=== PATIENT | female | born 1960 | race Caucasian/White ===

== ENCOUNTER 2024-08-30 09:17 | Inpatient (IN) | payer BC ==
[~2024-08-30] VITALS: Ht 177.8 cm; Wt 123.2 kg
[2024-08-30 09:57] LABS: BASO % 0.4 % (0.0-2.0); EOS # 0.1 K/mm3 (0.0-0.7); EOS % 1.3 % (0.0-4.0); GRAN # 6.8 K/mm3 (1.4-6.5); GRAN % 82.6 % (42.2-75.2); HEMOGLOBIN 11.6 g/dl (12.5-16.0); LYMPH # 0.7 K/mm3 (1.2-3.4); LYMPH % 8.6 % (20.0-51.0); MEAN CELL VOLUME 87 fl (80.0-100.0); MEAN CORPUSCULAR HEMOGLOBIN 28 pg (27-31); MEAN CORPUSCULAR HGB CONC 32 g/dl (33.0-37.0); MEAN PLATELET VOLUME 9.5 fl (7.4-10.4); MONO # 0.6 K/mm3 (0.1-0.6); MONO % 6.7 % (1.7-9.3); PLATELET COUNT 171 K/mm3 (130-400); RED BLOOD COUNT 4.14 M/mm3 (4.10-5.30); REDCELL DISTRIBUTION WIDTH-CV 13.4 % (11.5-14.5)
[2024-08-30 09:59] LABS: HEMATOCRIT 36.2 % (37.0-47.0)
[2024-08-30] MEDS ORDERED: Ondansetron 4 MG/2 ML VIAL IV ONE (10:00)
[2024-08-30] MEDS ORDERED: Morphine 4 MG/ML VIAL IV ONE (10:00)
[2024-08-30] MEDS ORDERED: NS 1,000 ML IV ONE (10:00)
[2024-08-30] MEDS ORDERED: Iohexol 350 - 100 ML VIAL IV ONE (10:17)
[2024-08-30] MEDS ORDERED: NS 100 ML IV SCH (10:18)
[2024-08-30 10:19] LABS: ALANINE AMINOTRANSFERASE 85 U/L (0-55); ALBUMIN 3.3 g/dL (3.4-4.8); ALKALINE PHOSPHATASE 156 U/L (40-150); ANION GAP 8 mmol/L (7-16); AST,SGOT 58 U/L (5-34); BILIRUBIN,TOTAL 1.3 mg/dL (0.2-1.2); BLOOD UREA NITROGEN 10 mg/dL (10-20); CALCIUM 9.4 mg/dL (8.4-10.2); CHLORIDE 103 mEq/L (98-107); CREATININE, serum 0.93 mg/dL (0.57-1.11); GLUCOSE 295 mg/dL (70-99); POTASSIUM 4.1 mEq/L (3.5-4.5); SODIUM 136 mEq/L (136-145); TOTAL PROTEIN 7.1 g/dl (6.2-8.1)
[2024-08-30 10:30] LABS: TROPONIN-I < 0.010 ng/mL (0.00-0.033)
[2024-08-30] MEDS ORDERED: LIPITOR 40MG TA40 MG PO (12:54)
[2024-08-30] MEDS ORDERED: ELIQUIS 5MG PO (12:54)
[2024-08-30] MEDS ORDERED: HCTZ 25MG TAB25 MG PO (12:54)
[2024-08-30] MEDS ORDERED: TOPROL XL 50MG50 MG PO (12:55)
[2024-08-30] MEDS ORDERED: SINGULAIR 110 MG/TAB PO (12:55)
[2024-08-30] MEDS ORDERED: COZAAR100 MG PO (12:55)
[2024-08-30] MEDS ORDERED: Polyethylene Glycol 3350 17 GM PDS PO PRN (13:15)
[2024-08-30] MEDS ORDERED: Ondansetron 4 MG/2 ML VIAL IV PRN (13:15)
[2024-08-30] MEDS ORDERED: Acetaminophen 325 MG TAB PO PRN (13:15)
[2024-08-30] MEDS ORDERED: Docusate Sodium 100 MG CAP PO PRN (13:15)
[2024-08-30] MEDS ORDERED: PHARMASSURE ZIN50 MG PO (13:30)
[2024-08-30] MEDS ORDERED: VITAMIN D31000 IU PO (13:30)
[2024-08-30] MEDS ORDERED: VTAMINC250TA PO (13:30)
[2024-08-30 14:27] VITALS: BP_SYST 143
[2024-08-30 14:49] VITALS: BP 145/83; PULSE 84; TEMP 98.1
[2024-08-30] MEDS ORDERED: dexAMETHasone 10 MG/ML VIAL IV SCH (16:00)
--- NOTE | 2024-08-30 16:00 | NUR ---
Pt arrived to the floor from ED. She is alert and oriented, has complaints of headache, prn tylenol given. Pt on 2L of O2 at this time. Oriented her to her room and educated on plan of care, orders and room service.
[2024-08-30 16:40] VITALS: BP_SYST 145
--- NOTE | 2024-08-30 18:00 | NUR ---
Discussed medication orders with pt, states that tylenol did help. Pt was on room air upon entering, she stated that she took it off when she went to the bathroom, checked O2 and it was 93%. I did call RT as there was not any extension tubing up here. Leaving O2 off at this time. No needs, will continue to monitor
[2024-08-30 19:32] VITALS: BP 133/70; PULSE 75; TEMP 98.1
[2024-08-30] MEDS ORDERED: Albuterol/Ipratropium 3 MG-0.5 MG/3 ML Neb Soln IH SCH (20:00)
[2024-08-30 20:19] VITALS: BP_SYST 133
[2024-08-30] MEDS ORDERED: Apixaban 5 MG TABLET PO SCH (21:00)
[2024-08-30] MEDS ORDERED: Doxycycline Monohydrate 100 MG CAP PO SCH (21:00)
[2024-08-30] MEDS ORDERED: Atorvastatin 40 MG TAB PO SCH (21:00)
--- NOTE | 2024-08-30 21:00 | NUR ---
Patient sitting up in bed. States she has a headache but denies any pain. States she feels like her headache is due to the shortness of air, 2L NC of O2 placed. Denies any needs. Assessment complete. IV in right AC flushes easily without complications. Call light and persoanl items in reach. Bed in low position.
[2024-08-31] VITALS (12 sets, daily range): BP systolic 118–150; BP diastolic 72–90; PULSE 61–96; TEMP 97.4–98.2
[2024-08-31 06:51] LABS: BASO % 0.2 % (0.0-2.0); GRAN # 5.5 K/mm3 (1.4-6.5); GRAN % 87.2 % (42.2-75.2); HEMOGLOBIN 11.7 g/dl (12.5-16.0); LYMPH # 0.6 K/mm3 (1.2-3.4); LYMPH % 8.8 % (20.0-51.0); MEAN CELL VOLUME 86 fl (80.0-100.0); MEAN CORPUSCULAR HEMOGLOBIN 28 pg (27-31); MEAN CORPUSCULAR HGB CONC 33 g/dl (33.0-37.0); MEAN PLATELET VOLUME 11.5 fl (7.4-10.4); MONO # 0.2 K/mm3 (0.1-0.6); MONO % 3.6 % (1.7-9.3); RED BLOOD COUNT 4.14 M/mm3 (4.10-5.30); REDCELL DISTRIBUTION WIDTH-CV 13.3 % (11.5-14.5)
[2024-08-31 07:23] LABS: HEMATOCRIT 35.7 % (37.0-47.0); PLATELET COUNT 104 K/mm3 (130-400)
[2024-08-31 07:25] LABS: CALCIUM 9.4 mg/dL (8.4-10.2); CREATININE, serum 0.95 mg/dL (0.57-1.11); POTASSIUM 4.5 mEq/L (3.5-4.5)
--- NOTE | 2024-08-31 08:00 | NUR ---
Pt doing well this morning, she is on room air and states she feels fine. Pt is getting up independently in her room, no complaints at this time. Pt has ordered breakfast. Hospitalist aware of blood sugars.
[2024-08-31] MEDS ORDERED: Insulin Lispro (HumaLOG) SQ SCH (08:29)
[2024-08-31] MEDS ORDERED: Losartan 50 MG TAB PO SCH (09:00)
[2024-08-31] MEDS ORDERED: hydroCHLOROthiazide 25 MG TAB PO SCH (09:00)
--- NOTE | 2024-08-31 10:33 | NUR ---
Discussed new orders with pt. Pt has been up walking in the halls with no issues, not requiring any O2. Lung sounds continue to be diminished. She is aware the Dr Villalba with pulmonology will be rounding with her today. No needs, will continue to monitor
--- NOTE | 2024-08-31 10:47 | NUR ---
Dr Villalba in with pt discussing plan of care
--- NOTE | 2024-08-31 11:32 | NUR ---
Initial visit; Patient found Vice President Payment in the patterson. She is doing better physically though dealing with the breakup of a 45 year marriage to a Prn Occupational Therapist. Nichol is doing all the healthy "grief" care and counseling along with joining a new [employer] and trying different activities. She shed a few tears which Vice President Payment said are good and Vice President Payment is always available for her. She thanked Vice President Payment for keeping her in her prayers.
--- NOTE | 2024-08-31 13:01 | NUR ---
SHERINE met with patient to complete initial assessment for discharge planning. Patient reports to live alone in [place] and states she just moved here in June from [place]. Patient lists her friend Nikki Stout ([phone]) as her contact. Patient denies having a DPOA and declines to complete one at this time. Patient states she is in the process of establishing with [facility] PCP and uses -[facility] pharmacy without difficulty. Patient denies having any DME and reports to be independent and active. Plan is to return home tomorrow. Discharge plan: Home
--- NOTE | 2024-08-31 19:05 | NUR ---
Pt has continued to do well with no complaints. Pt has been up walking the halls a lot, not requiring any O2. Still start discussing pts bloo sugars with her and that she will need to follow up with a primary care Dr. Pt is working with social work on picking a primary care. No needs at this time, report given
--- NOTE | 2024-08-31 19:20 | NUR ---
PATIENT IS AWAKE AND ALERT SITITNG UP IN HER RECLINER. PATIENT DENIES ANY NEEDS OR COMPLAINTS AT THIS TIME CALL LIGHT JEANETTE RUSSO.
[2024-09-01] VITALS (14 sets, daily range): BP systolic 102–162; BP diastolic 61–84; PULSE 47–95; TEMP 97.4–98
[2024-09-01 00:12] LABS: TB GOLD INTERPRETATION Negative (Negative)
--- NOTE | 2024-09-01 04:00 | NUR ---
PATIENT IS AWAKE AND ALERT, RESTING IN BED. PATIENT DENIES ANY NEEDS, COMPLAINTS OR PAIN AT THIS TIME. PATIENT RESTING COMFORTABLY ON ROOM AIR. CALL LIGHT WITHIN REACH.
[2024-09-01 06:37] LABS: BASO % 0.1 % (0.0-2.0); GRAN # 9.9 K/mm3 (1.4-6.5); GRAN % 89.1 % (42.2-75.2); HEMOGLOBIN 11.4 g/dl (12.5-16.0); LYMPH # 0.8 K/mm3 (1.2-3.4); MEAN CELL VOLUME 85 fl (80.0-100.0); MEAN CORPUSCULAR HEMOGLOBIN 28 pg (27-31); MEAN CORPUSCULAR HGB CONC 33 g/dl (33.0-37.0); MEAN PLATELET VOLUME 10.2 fl (7.4-10.4); MONO # 0.4 K/mm3 (0.1-0.6); MONO % 3.3 % (1.7-9.3); PLATELET COUNT 200 K/mm3 (130-400); RED BLOOD COUNT 4.04 M/mm3 (4.10-5.30); REDCELL DISTRIBUTION WIDTH-CV 13.2 % (11.5-14.5)
[2024-09-01 06:39] LABS: HEMATOCRIT 34.2 % (37.0-47.0)
[2024-09-01 06:42] LABS: CALCIUM 9.5 mg/dL (8.4-10.2); CREATININE, serum 1.21 mg/dL (0.57-1.11); POTASSIUM 4.4 mEq/L (3.5-4.5)
[2024-09-01] MEDS ORDERED: Albuterol/Ipratropium 3 MG-0.5 MG/3 ML Neb Soln IH PRN (08:00)
[2024-09-01] MEDS ORDERED: Dextrose 50% Water 25 GM/50 ML SYRINGE IV PRN (08:15)
[2024-09-01] MEDS ORDERED: Glucagon 1 MG VIAL IM PRN (08:15)
[2024-09-01] MEDS ORDERED: NS 1,000 ML IV SCH (08:15)
[2024-09-01] MEDS ORDERED: Dextrose (Glucose) 15 GM (4 x 3.75 GM) Chewable TABLET PACK PO PRN (08:15)
[2024-09-01] MEDS ORDERED: Insulin Glargine-ygfn (Lantus) SQ SCH (08:30)
--- NOTE | 2024-09-01 12:14 | NUR ---
SHIFT ASSESSMENT COMPLETE. VSS. PATIENT RESTING IN BED, AMBULATING AROUND ROOM OFF AND ON THIS AM IND. ALL MORNING MEDS GIVEN ORDERED. PATIENT HAS NO OTHER REQUEST THIS AM. CALL LIGHT IN REACH
--- NOTE | 2024-09-01 14:29 | NUR ---
Follow-up visit: Patient expectedly having a rough time today. She is worried about her health and her hopefully soon diagnosis and is grieving due to a divorce from her of 45 years. Regional Sales Associate just listened and spoke of God's presence hopefully giving her comfort. Also, Regional Sales Associate let her know she is available to listen, pray and help when she needs someone. She thanked Regional Sales Associate.
--- NOTE | 2024-09-01 22:26 | NUR ---
patient lying in bed, alert and oriented x4. denies chest pain/discomfort and shortness of breath. ambulating with steady gait in hallway and back in bed. IV in RAC is patent, site CDI with NS running at 100 ml/hr. no remarkable skin findings. call light within reach. pt has no further needs, questions or concerns at this time.
[2024-09-02 00:21] VITALS: BP_SYST 127
[2024-09-02 04:00] VITALS: BP 111/53; PULSE 59; TEMP 97.3
[2024-09-02 04:11] VITALS: BP_SYST 111
[2024-09-02 07:52] LABS: HEMOGLOBIN 10.6 g/dl (12.5-16.0); MEAN CELL VOLUME 86 fl (80.0-100.0); MEAN CORPUSCULAR HEMOGLOBIN 29 pg (27-31); MEAN CORPUSCULAR HGB CONC 34 g/dl (33.0-37.0); PLATELET COUNT 207 K/mm3 (130-400); RED BLOOD COUNT 3.66 M/mm3 (4.10-5.30); REDCELL DISTRIBUTION WIDTH-CV 13.4 % (11.5-14.5)
[2024-09-02 07:57] LABS: HEMATOCRIT 31.3 % (37.0-47.0)
[2024-09-02 08:10] VITALS: BP 151/84; PULSE 66; TEMP 98
[2024-09-02 08:10] LABS: CALCIUM 8.1 mg/dL (8.4-10.2); CREATININE, serum 0.98 mg/dL (0.57-1.11); POTASSIUM 3.7 mEq/L (3.5-4.5)
--- NOTE | 2024-09-02 08:44 | NUR ---
Patient coming back from the restroom. Alert and oriented x 4, Getting fluids and antibiotics per orders. At RA. Denies any SOB or pain. Assessment completed, meds given. No further needs at this time. Call light within reach.
[2024-09-02 09:00] VITALS: BP_SYST 151
[2024-09-02] MEDS ORDERED: dexAMETHasone 4 MG TAB PO SCH (09:00)
--- NOTE | 2024-09-02 09:03 | NUR ---
Follow-up visit: When asked, Nichol said she slept better last night. She thanked Metal Machine Operator for checking on her this morning and stated she had Metal Machine Operator in her phone and said if and when she needs someone to listen and help her know she is not alone, she will call Metal Machine Operator. Metal Machine Operator gave her her card asking her to let her know when she needs grief support or someone to talk with since she is nearly alone.
[2024-09-02 09:14] LABS: .HISTOPLASMA ANTIGEN SERUM Negative (())
[2024-09-02] MEDS ORDERED: FREESTYLE PREC1 EAC5 MC (10:46)
[2024-09-02] MEDS ORDERED: GLUCOSE TEST ST1 DEV MC (10:46)
[2024-09-02] MEDS ORDERED: LANCETS MC (10:47)
[2024-09-02] MEDS ORDERED: BD ALCOHOL1 SWA MC (10:47)
[2024-09-02] MEDS ORDERED: JARDIANCE10 PO (10:56)
[2024-09-02] MEDS ORDERED: CEFTIN500 MG PO (11:00)
[2024-09-02] MEDS ORDERED: DOXYCYCLINE 10100 MG PO (11:01)
[2024-09-02] MEDS ORDERED: DECADRON 4MG TAB4 MG PO (11:02)
--- NOTE | 2024-09-02 13:50 | NUR ---
back up worker was notified patient is medically ready for discharge. Patient needs a PCP for follow up. SHERINE met with patient whom stated she would prefer a female PCP and preferrably Dr. Mei at [facility] since her biblical studies professor is there. SHERINE notified nursing unit coordinator whom was notified Dr. Mei is currently not accepting new patients. library customer service clerk met with patient whom expressed she would be open to another facility for a female doctor otherwise she would be okay with a male doctor. SHERINE contacted RAMIREZ Soriamanager of patient, whom spoke with Dr. Alexandra's office whom reported they are able to accept patient. SHERINE was notified Dr. Alexandra's nurse will contact patient to schedule appointment and get her medical background. SHERINE notified patient of this information and provided contact information for [facility]. Discharge plan: Home
== END 2024-09-02 13:07 | disposition home or self-care (01) | DRG 187 ==
LOC: COL.ER 09:17 → SURG 13:12
PROVIDERS: Internal Medicine; Personal Emergency Response Attendant; ADMIT Internal Medicine
DX: J90 Pleural effusion, not elsewhere classified (principal); I97.191 Other postprocedural cardiac functional disturbances following other surgery; N17.9 Acute kidney failure, unspecified; I10 Essential (primary) hypertension; E78.5 Hyperlipidemia, unspecified; E66.9 Obesity, unspecified; Z79.899 Other long term (current) drug therapy; Z88.5 Allergy status to narcotic agent; R59.9 Enlarged lymph nodes, unspecified; E01.0 Iodine-deficiency related diffuse (endemic) goiter; E11.65 Type 2 diabetes mellitus with hyperglycemia; Z23 Encounter for immunization; Z68.38 Body mass index [BMI] 38.0-38.9, adult
CPT/HCPCS: J1100; J1815; J1956; J2270; J2405; J2543; J7030; J8540; Q9967